=== PATIENT | male | born 1955 | race Caucasian/White ===

== ENCOUNTER 2018-07-20 12:02 | Emergency (ER) | payer SELFPAY ==
[2018-07-20] MEDS: FLUORESCEIN STRIP RIGHT EYE (13:40)
[2018-07-20] MEDS: TETRACAINE 0.5% 4 ML OPH RIGHT EYE (13:40)
[2018-07-20] MEDS: predniSONE 20 MG TAB PO (14:14)
== END 2018-07-20 15:00 | disposition home or self-care (01) ==
LOC: FTE 15:00
DX: G51.0 Bell's palsy (principal); I10 Essential (primary) hypertension
CPT/HCPCS: 99283